=== PATIENT | female | born 1990 | race Caucasian/White ===

== ENCOUNTER 2021-05-02 00:45 | Outpatient (CLI) | payer SELFPAY ==
[2021-05-02 01:02] VITALS: BP 118/69; PULSE 92; TEMP 37.2; O2SAT 99
[2021-05-02 01:09] VITALS: BMI 26.9
[2021-05-02 02:59] VITALS: BP 118/70; PULSE 93
[2021-05-02 03:00] VITALS: PULSE 79; TEMP 36.5; O2SAT 100
[2021-05-02 03:13] VITALS: PULSE 79; O2SAT 98
--- NOTE | 2021-05-08 07:50 | OB.TRI.NOTE ---
HPI - General HPI Narrative MARTY WHITAKER, is a 31 F who presents for r/o labor @ 38.4 weeks gestation. Maternal Data Information TIMBO Calculator Estimated Delivery Date Method Current WG Current Estimate 05/12/21 Manual 39w 3d PFSH PFSH Home Medications vit,[id number] [Prenatabs FA] 1 tab PO DAILY 05/02/21 [History Last Taken 05/06/21 08:00] ferrous sulfate [iron] 325 mg PO DAILY 05/06/21 [History Last Taken 05/06/21 08:00] Allergy/AdvReac Type Severity Reaction Status Date / Time No Known Allergies Allergy Verified 05/06/21 18:45 Surgical History (Updated 05/06/21 @ 19:59 by Jenny Berg) History of surgery Social History Smoking Status: Never smoker History Elective abortions Hx Para 4 Spontaneous abortions Hx # Term Pregnancies Ectopic pregnancies Hx # Pregnancies Multiple births # of living children NST FHR Rate Baby A Baseline: 120 Variability:: Moderate Accelerations:: 15 x 15 Decelerations:: None NST Reactive:: Yes FHR Category:: Category I Uterine Activity:: irregular Assessment & Plan (1) False labor: PLAN: @ 38.4 weeks- false labor cervical exam unchanged- dc home
== END 2021-05-02 03:47 | disposition home or self-care (01) ==
LOC: WPOUT 01:01 → WP 01:01
PROVIDERS: Visit Provider Obstetrics & Gynecology
DX: O47.1 False labor at or after 37 completed weeks of gestation (principal); Z3A.38 38 weeks gestation of pregnancy
CPT/HCPCS: 59025; 59050; 99218; G0378

== ENCOUNTER 2021-05-06 18:05 | Inpatient (IN) | payer SELFPAY ==
[2021-05-06] VITALS (14 sets, daily range): BP systolic 107–122; BP diastolic 57–75; PULSE 70–105; TEMP 36.3–36.7; O2SAT 95–99; BMI 26.2
[2021-05-06] MEDS: Lactated Ringers 1,000 ML 200 ML IV (18:30)
--- NOTE | 2021-05-06 18:36 | HP.PCM.OB_ITS ---
HPI - General General Date of Admission: 05/06/21 HPI Narrative MARTY WHITAKER, is a 31 F who presents at 39w1d by LMP. Presented with contractions that started at 1600 this evening and increased in pain and intensity. No leakage of fluid or vaginal bleeding. Good movement. P regnancy course complicated by covid in 3rd trimester. Maternal Data Information TIMBO Calculator Estimated Delivery Date Method Current WG Current Estimate 05/12/21 Manual 39w 1d PFSH PFSH Home Medications vit,[id number] [Prenatabs FA] 1 tab PO DAILY 05/02/21 [History Last Taken 05/01/21] ferrous sulfate [iron] 325 mg PO DAILY 05/06/21 [History Last Taken 05/06/21 08:00] Allergy/AdvReac Type Severity Reaction Status Date / Time No Known Allergies Allergy Verified 05/06/21 18:45 NST FHR Rate Baby A Baseline: 140 Variability:: Moderate Accelerations:: 15 x 15 Decelerations:: None FHR Category:: Category I Uterine Activity:: 2-3 minutes, moderate to strong ROS Constitutional Constitutional: Reports systems reviewed and no addt'l complaints, except as documented; Denies headache(s) Eyes Eyes: Denies acute decrease in peripheral vision, blurry vision or change in vision ENT HEENT: Reports systems reviewed and no addt'l complaints, except as documented Cardiovascular Cardiovascular: Denies chest pain or dizziness Respiratory/Chest Respiratory/Chest: Denies cough, dyspnea, dyspnea on exertion, shortness of breath at rest or shortness of breath with exertion Gastrointestinal Gastrointestinal: Denies abdominal pain, diarrhea, nausea or vomiting Genitourinary Genitourinary: Reports movement; Denies abdominal discomfort Musculoskeletal Musculoskeletal: Denies limited range of motion Integumentary Integumentary: Reports systems reviewed and no addt'l complaints, except as documented Neurologic Neurologic: Reports systems reviewed and no addt'l complaints, except as documented Psychiatric Psychiatric: Reports systems reviewed and no addt'l complaints, except as documented Endocrine Endocrinology: Reports systems reviewed and no addt'l complaints, except as documented Hematologic/Lymphatic Hematologic/Lymphatic: Reports systems reviewed and no addt'l complaints, except as documented Allergic/Immunologic Allergic/Immunologic: Reports systems reviewed and no addt'l complaints, except as documented Physical Exam Const alert and oriented x3 General Appearance: cooperative Orientation / Consciousness: awake, oriented to person, oriented to place and oriented to time Exam Limitations: no limitations HEENT normocephalic Head and Scalp: normal to inspection, normocephalic and atraumatic Face and Sinus: normal facial exam Eyes General Eye: normal appearance of both eyes Neck full ROM Chest Chest: symmetrical chest wall rise Resp normal respiratory effort and normal air movement Auscultation: clear to auscultation bilaterally Cardio regular rate, regular rhythm, S1 normal heart sound, S2 normal heart sound, no m urmurs, no rub, no gallops and no clicks GI normal to inspection, nondistended, normoactive bowel sounds and non-tender appearance of the vagina normal Bladder / Kidney Exam: no CVA tenderness Manual OB Exam: estimated gestational size appropriate, presentation cephalic, dilated 5.5, effaced 70 and station -1 Back/Spine normal ROM Extremity normal to inspection and full ROM Skin no rashes or lesions noted Neuro oriented x3, CN's II-XII intact bilaterally and moves all extremities Sensorium / Orientation: awake, alert and oriented to person Motor Exam: clonus absent Deep Tendon Reflexes: Rt Patellar (L4): 2+ and Lt Patellar (L4): 2+ Labs Labs Labs: No Data to Display GBS positive Failed 1hr GCT, 3hr GTT normal RPR negative Rubella Immune HBsAG negative O positive HepC negative GC/CT negative Assessment & Plan (1) Active labor at term: (2) 39 weeks gestation of : (3) Positive GBS test: (4) Thrombocytopenia affecting : (5) COVID-19 affecting in third trimester: PLAN: 1) Admit to labor and delivery 2) Routine labs 3) COVID testing, asymptomatic 4) GBS positive, PCN per protocol 5) IA after category 1 FHT 6) Would like unmedicated 7) collaborative physician and notified of patient status and admission
[2021-05-06 19:01] LABS: Absolute Lymphocyte Count 2.03 X10^3/uL (0.83-4.51); Absolute Neutrophil Count 7.7 X10^3/uL (2.0-7.7); Basophil# 0.02 X10^3/uL; Basophil% 0.2 % (0-1); Eosinophil# 0.05 X10^3/uL; Eosinophils% 0.5 % (0-5); Lymphocyte # 2.03 X10^3/ul (0.83-4.51); Lymphocyte % 18.9 % (19-41); Mean Corp Hgb Conc 35.3 g/dL (32-36); Mean Corpuscular Hgb 31.9 pg (27.0-32.0); Mean Corpuscular Volume 90.4 fL (81-99); Mean Platelet Vol. 9.7 fl (6.2-12.0); Monocyte# 0.83 X10^3/uL; Monocyte% 7.7 % (0-10); NRBC Flagged by Analyzer 0 % (0-5); Neutrophil % 71.8 % (47-70); Platelet Count 173 K/mm3 (150-450); RBC Distribution Width CV 13.2 % (11.6-14.6); RBC Distribution Width SD 43.1 fl (35.1-43.9); Red Blood Count 3.76 M/mm3 (4.2-5.4); White Blood Count 10.7 K/mm3 (4.4-11.0)
[2021-05-06] MEDS: Penicillin G 3,000,000 Units 50 ML 100 UNITS IV (22:48)
--- NOTE | 2021-05-06 22:51 | PN.OBGYN_ITS ---
Subjective Subjective Laboring on peanut ball and breathing through contractions. at bedside. Objective Data Objective Data Vital Signs: Vital Signs Temp Pulse BP Pulse Ox 97.6 F L 70 107/57 L 95 05/06/21 21:55 05/06/21 22:30 05/06/21 21:55 05/06/21 21:55 Weight: 167 lb Body Mass Index (BMI) 26.2 Intake & Output: Intake and Output for Last 24 Hours 05/04/21 05/05/21 05/06/21 23:59 23:59 23:59 Intake Total 825 / 825 Balance 825 / 825 Lab / Micro Data Result Diagrams: 05/06/21 18:30 Labs: Laboratory Results - last 24 hr 05/06/21 18:30: WBC 10.7, RBC 3.76 L, Hgb 12.0, Hct 34.0 L, MCV 90.4, MCH 31.9, MCHC 35.3, RDW Std Deviation 43.1, RDW Coeff of Denae 13.2, Plt Count 173, MPV 9.7, Immature Gran % (Auto) 0.900, Neut % (Auto) 71.8 H, Lymph % (Auto) 18.9 L, [place] % (Auto) 7.7, Eos % (Auto) 0.5, Baso % (Auto) 0.2, Absolute Neuts (auto) 7.7, Absolute Lymphs (auto) 2.03, Nucleated RBC % 0 05/06/21 18:30: Blood Type O POSITIVE, Antibody Screen NEGATIVE Micro: Microbiology 05/06/21 18:48 Nasal Secretion SARS-CoV-2 Antigen (Rapid) - Final Physical Exam Manual OB Exam: presentation cephalic, dilated 6.5, effaced 80 and station -1 Amniotic Fluid: clear amniotic fluid NST FHR Rate Baby A Baseline: Intermittent Auscultation 130, increases, no decreases FHR Category:: Category I Uterine Activity:: every 2-5 minutes, strong Assessment & Plan (1) COVID-19 affecting in third trimester: (2) Thrombocytopenia affecting : (3) Positive GBS test: (4) 39 weeks gestation of : (5) Active labor at term: PLAN: 1) IA, Category 1 2) Expectant management. AROM 3) GBS, continue prophylaxis PCN 4) Pain management, planning unmedicated
[2021-05-07] VITALS (38 sets, daily range): BP systolic 109–131; BP diastolic 57–70; PULSE 60–100; RESP 16; TEMP 36.2–37; O2SAT 91–100
[2021-05-07] MEDS: Oxytocin 30 units/NS 500 ml 30 UNITS/500 ML IV.SOLN 334 UNITS IV (00:38)
--- NOTE | 2021-05-07 00:51 | EX.PCM.OBRPT ---
Assessment & Plan (1) Vaginal delivery: (2) First degree perineal laceration: Maternal Data Information TIMBO Calculator Estimated Delivery Date Method Current WG Current Estimate 05/12/21 Manual 39w 2d Vaginal Delivery Maternal Presentation Maternal Presentation: Active Labor Operative Information Date of Procedure: 05/07/21 Pre-Operative Diagnosis: Active Labor Post-Operative Diagnosis: Surgery / Procedure Performed: Spontaneous Vaginal Delivery Type of Anesthesia: None Estimated Blood Loss: 200 ml Time of Delivery: 00:35 Findings Description of Procedure: Progressed to complete with urge to push. Unmedicated . of viable male infant over first degree perineal laceration. APGARS 9,9. Infant head delivered with compound hand presentation, body immediately forthcoming and placed on maternal abdomen. Mouth and nares wiped for secretions, strong cry. Pitocin started for active 3rd stage management. Cord clamped and cut after pulsations ceased. Placenta delivered intact via kike. Perineum inspected and revealed first degree perineal laceration, repaired with 3.0 vicryl rapide with no anesthesia with patient consent, single figure of 8 suture. Vaginal sweep completed, fundus firm, EBL 200ml. Sponge and instrument count correct and completed by me. Mom and baby stable, family bonding well. Planning to breastfeed. collaborative physician and notified of patient delivery. Presentation: ROSALINA Amniotic Membrane Rupture Type: Artificial Amniotic Fluid Description: Clear Placental Delivery Description: Expressed Placenta Disposition: [facility] Cord Vessel Description: 3 Vessels Cord Entanglement: None Infant A Gender: Male (1 minute): 9 (5 minute): 9 Delayed Cord Clamping: Yes Post Vaginal Delivery Medications Given After Delivery: IV Pitocin Episiotomy Description: None Laceration: Perineal Extension/lac and 1st degree Complication Complications: None
[2021-05-07] MEDS: 0.9% Saline Lock 10 ML Syringe IV (03:08)
[2021-05-07] MEDS: Ibuprofen 600 MG Tablet PO (03:08)
[2021-05-07] MEDS: Senna/Docusate Sodium 1 Tablet PO (16:36)
[2021-05-07] MEDS: Acetaminophen 500 MG Tablet 1000 MG PO (20:10)
[2021-05-08] MEDS: Ibuprofen 600 MG Tablet PO (00:43)
[2021-05-08] MEDS: Hydrocortisone 2.5% Crm 1 APPLIC TOPICAL (00:44)
[2021-05-08 01:30] VITALS: BP 108/59; PULSE 64; RESP 16; TEMP 36.4; O2SAT 97
[2021-05-08 01:43] VITALS: O2SAT 97
[2021-05-08 01:44] VITALS: BP 108/59; PULSE 63
[2021-05-08 08:02] VITALS: BP 112/56; PULSE 69
[2021-05-08 08:03] VITALS: BP 112/66; PULSE 70; RESP 16; TEMP 36.6; O2SAT 99
--- NOTE | 2021-05-08 08:52 | PCM.PROGNOTE ---
Subjective Subjective patient seen at bedside, doing well. Patient reports good pain control. lochia mild. Objective Data Objective Data Vital Signs: Vital Signs Temp Pulse Resp BP Pulse Ox 97.9 F 70 16 112/66 99 05/08/21 08:03 05/08/21 08:03 05/08/21 08:03 05/08/21 08:03 05/08/21 08:03 Oxygen Delivery Method Room Air Weight: 75.75 kg Body Mass Index (BMI) 26.2 Intake & Output: Intake and Output for Last 24 Hours 05/06/21 05/07/21 05/08/21 23:59 23:59 23:59 Intake Total 1675 / 1675 900 / 900 Output Total 300 / 300 Balance 1675 / 1675 600 / 600 Lab / Micro Data Result Diagrams: 05/06/21 18:30 Micro: Microbiology 05/06/21 18:48 Nasal Secretion SARS-CoV-2 Antigen (Rapid) - Final Physical Exam Const alert and oriented x3 General Appearance: cooperative HEENT normocephalic Neck General: normal visual inspection GI soft to palpation and non-distended GI Narrative: Fundus firm Extremity normal to inspection and no calf tenderness Skin no rashes or lesions noted Neuro oriented x3 and CN's II-XII intact bilaterally Psych mental status grossly normal Assessment & Plan Assessment/Plan (1) Vaginal delivery: (2) First degree perineal laceration: PLAN: PPD#1 , Doing well Routine care pain mgmt ambulation dc home per patient request
--- NOTE | 2021-05-08 08:52 | PCM.DC ---
Discharge Instructions Diet Discharge Diet: No restrictions Activity May resume sexual activity in: 6-8 weeks Dressing / Incision Call your doctor if you observe: Fever of 101 or Higher, Inability to urinate, Using more than 1 pad per hour and Uncontrolled pain Follow Up Care Please Follow Up With: Vannessa Patton MD When: 1-2 weeks post and again at 6 weeks post . [phone] Test Results: Test results from this visit will be discussed in further detail at your follow-up appointment, if applicable. Discharge Plan Admission Admit Date/Time: 05/06/21 18:05 Attending Provider: Karen Ruiz Primary Care Provider: Care Physician,No Primary Discharge Orders/Prescriptions Prescriptions: New acetaminophen 500 mg Tablet 1,000 mg PO Q6H PRN PRN (Reason: Pain 1-10 Or Fever) Qty: 0 RF: 0 ibuprofen 600 mg Tablet 600 mg PO Q6H PRN PRN (Reason: Pain Score 1-3) Qty: 0 RF: 0 Continued Prenatabs FA 29-1 mg Tablet 1 tab PO DAILY RF: 0 ferrous sulfate [iron] 325 mg (65 mg iron) Tablet 325 mg PO DAILY RF: 0 Referrals / Follow Up: Care Physician,No Primary [Primary Care Provider] - Disposition Disposition (needs filled in before D/C Order can be placed): Home, Self Care
== END 2021-05-08 10:28 | disposition home or self-care (01) | DRG 807 ==
PROVIDERS: Admitting Provider Advanced Practice Midwife; Visit Provider Advanced Practice Midwife
DX: O99.119 Other diseases of the blood and blood-forming organs and certain disorders involving the immune mechanism complicating pregnancy, unspecified trimester (principal); Z37.0 Single live birth; D69.6 Thrombocytopenia, unspecified; O99.824 Streptococcus B carrier state complicating childbirth; O70.0 First degree perineal laceration during delivery; Z3A.39 39 weeks gestation of pregnancy; Z86.16 Personal history of COVID-19
CPT/HCPCS: 59025; 59050; 85025; 86850; 86900; 86901; 87426; 99218; J7120; A4216; G0378

== ENCOUNTER 2023-09-30 17:30 | Inpatient (IN) | payer MEDICAID, SELFPAY ==
[2023-09-30] VITALS (10 sets, daily range): BP systolic 115–126; BP diastolic 56–71; PULSE 73–90; RESP 14–18; TEMP 36.4–37.4; O2SAT 98–100; BMI 26.4
[2023-09-30] MEDS: Lactated Ringers 1,000 ML 50 ML IV (17:50)
[2023-09-30 18:02] LABS: Absolute Lymphocyte Count 1.92 X10^3/uL (0.83-4.51); Absolute Neutrophil Count 6.3 X10^3/uL (2.0-7.7); Basophil# 0.02 X10^3/uL; Basophil% 0.2 % (0-1); Eosinophil# 0.05 X10^3/uL; Eosinophils% 0.5 % (0-5); Hematocrit 31.7 % (37-47); Hemoglobin 10.4 g/dL (12.0-15.0); Lymphocyte # 1.92 X10^3/ul (0.83-4.51); Lymphocyte % 20.9 % (19-41); Mean Corp Hgb Conc 32.8 g/dL (32-36); Mean Corpuscular Hgb 28.6 pg (27.0-32.0); Mean Corpuscular Volume 87.1 fL (81-99); Mean Platelet Vol. 9.8 fl (6.2-12.0); Monocyte# 0.81 X10^3/uL; Monocyte% 8.8 % (0-10); NRBC Flagged by Analyzer 0 % (0-5); Neutrophil # 6.34 X10^3/uL (2.7-7.7); Neutrophil % 68.9 % (47-70); Platelet Count 189 K/mm3 (150-450); RBC Distribution Width CV 13.8 % (11.6-14.6); RBC Distribution Width SD 43.8 fl (35.1-43.9); Red Blood Count 3.64 M/mm3 (4.2-5.4); White Blood Count 9.2 K/mm3 (4.4-11.0)
[2023-09-30] MEDS: Penicillin G Pot 5,000,000 UNITS in 0.9% Normal Saline (100mL MB+) 100 ML 150 UNITS IV (18:07)
[2023-09-30 18:50] LABS: Syphilis Antibodies Non-reactive
[2023-09-30] MEDS: LACTATED RINGERS 500 ML 999 ML IV (19:20)
[2023-09-30] MEDS: Penicillin G 3,000,000 Units 50 ML 100 UNITS IV (22:10)
[2023-10-01] VITALS (38 sets, daily range): BP systolic 108–124; BP diastolic 54–69; PULSE 55–75; RESP 14–18; TEMP 36.8–37.7; O2SAT 98–100
[2023-10-01] MEDS: Oxytocin 15 Units/NS 250ml 15 UNITS/250 ML IV.SOLN 334 UNITS IV (00:37)
--- NOTE | 2023-10-01 00:54 | EX.PCM.OBRPT ---
Assessment & Plan (1) (spontaneous vaginal delivery): (2) 39 weeks gestation of : Maternal Data Information Final TIMBO: 10/07/23 Gestational age: 39+1 Vaginal Delivery Maternal Presentation Maternal Presentation: Active Labor Maternal Presentation: 6 cm paras Type of Induction: Amniotomy Operative Information Date of Procedure: 10/01/23 Pre-Operative Diagnosis: Labor at term Post-Operative Diagnosis: same Surgery / Procedure Performed: Spontaneous Vaginal Delivery Type of Anesthesia: None Estimated Blood Loss: 100 cc Time of Delivery: 00:34 Findings Description of Procedure: Progressed to complete after AROM. Pushed for 30 minutes and delivered JAYANT followed by the anterior and posterior shoulders without difficulty. The infant was placed on the maternal abdomen. After one minute the cord was clamped and cut. The placenta was delivered with gentle traction. There were no lacerations. Presentation: Vertex Amniotic Membrane Rupture Type: Artificial Time of Membrane Rupture: 1010 Amniotic Fluid Description: Clear Placental Delivery Description: Spontaneous Placenta Disposition: [facility] Cord Vessel Description: 3 Vessels Cord Entanglement: None Infant A Gender: Female (1 minute): 9 (5 minute): 9 Delayed Cord Clamping: Yes Post Vaginal Delivery Medications Given After Delivery: IV Pitocin Episiotomy Description: None Laceration: None Complication Complications: None
[2023-10-01] MEDS: Oxytocin 15 Units/NS 250ml 15 UNITS/250 ML IV.SOLN 83 UNITS IV (01:07)
[2023-10-02 01:30] VITALS: BP 110/57; PULSE 62
[2023-10-02 01:32] VITALS: BP 110/57; PULSE 62; RESP 18
--- NOTE | 2023-10-02 07:07 | PCM.DC.SUM ---
Providers Date of Admission: 09/30/23 Primary Care Physician: Jessi Primary Care Phys Reason For Visit: VAGINAL DELIVERY Diagnosis Discharge Diagnosis (1) (spontaneous vaginal delivery): Status: Acute Code(s): O80 - Encounter for full-term uncomplicated delivery (2) 39 weeks gestation of : Status: Resolved Code(s): Z3A.39 - 39 weeks gestation of Medications at Discharge Home Medications vits,calcium no.78-iron fumarate-folic acid 29 mg-1 mg tablet (Prenatabs FA) 1 tab PO DAILY 05/02/21 ferrous sulfate 325 mg (65 mg iron) tablet (iron) 325 mg PO .COMPLEX low iron 05/06/21 Hospital Course Operations None Procedures None Summary of Care Provided Minutes Spent on Discharge: 15 Hospital Course: Patient had vaginal delivery. Hospital course was uneventful. Physical Exam Narrative Patient seen at bedside. Denies pain. Ambulating and voiding without difficulty. Lochia decreased. Desires discharge home today. Const alert and oriented x3 General Appearance: Negative for in distress HEENT normocephalic Eyes General Eye: normal appearance of both eyes Neck General: normal visual inspection Chest Chest: symmetrical chest wall rise Resp normal respiratory effort and normal air movement Effort and Inspection: symmetric chest movement; Negative for tachypneic Auscultation: clear to auscultation bilaterally Cardio regular rate and regular rhythm Peripheral Pulses: pulses 2+ throughout GI normal to inspection, nondistended, normoactive bowel sounds Narrative: Ice to perineum OB / External & Speculum: vaginal bleeding and other Lochia decreasing Uterus Palpation: uterus fundus firm (Below U) Extremity normal to inspection, full ROM and normal capillary refill Skin no rashes or lesions noted Neuro oriented x3, CN's II-XII intact bilaterally and gait normal Psych mental status grossly normal, thought process normal and activity/motor behavior normal Weight / BMI Weight Weight: 168 lb 6 oz Body Mass Index (BMI) 26.4 ABG / Lab / Microbiology Data 09/30/23 17:50 D/C Instructions Discharge Diet: No restrictions Discharge Activity: Return to Normal Activity, No Restrictions, May Drive, May Shower and May Take a Tub Bath (Warm water only. No bath salts, soaps, bubbles) May resume sexual activity in: 6-8 weeks Weight Bearing Status: Weight bearing as tolerated Call your doctor if you observe: Fever of 101 or Higher, Inability to urinate, Using more than 1 pad per hour, Shortness of breath, Dizziness, Chest pain, Calf discomfort and Uncontrolled pain Please Follow Up With: [facility] Jinny BECERRA When: 2 weeks in office or virtual Meaningful Use Info Meaningful Use Meaningful Use Diagnoses (Choose all that apply): None applicable Ischemic Stroke Statin Dosing Therapy Reference: STATIN DOSE THERAPY REFERENCE: * Patients > 75 years receive moderate or high dose statin therapy. * Patients 75 years or YOUNGER should receive HIGH intensity statin dose unless contraindicated. You will be required to document reason for non-treatment if statin daily dose does not meet guidelines. HIGH DOSE STATIN THERAPY DAILY Atorvastatin > than or = to 40 mg Rosuvastatin > than or = to 20 mg Amlodipine + Atorvastatin > than or = to 2.5/40 mg Ezetimibe + Simvastatin 10/80 mg Simvastatin 80mg Discharge Plan Admission Admit Date/Time: 09/30/23 17:30 Primary Reason for Your Visit: Labor and Delivery Attending Provider: Celine Porras Primary Care Provider: Care Physician,No Primary Discharge Orders/Prescriptions Prescriptions: Continued Prenatabs FA 29-1 mg Tablet 1 tab PO DAILY ferrous sulfate [iron] 325 mg (65 mg iron) Tablet 325 mg PO .COMPLEX Rx Instructions: 325 mg orally Every other day; Referrals / Follow Up: Kirsten Daniels CNM [Med Staff - Adv Practice Prof] - Care Physician,No Primary [Primary Care Provider] - Disposition Disposition (needs filled in before D/C Order can be placed): Home, Self Care
[2023-10-02 08:29] VITALS: BP 113/70; PULSE 62; RESP 16; TEMP 37.2; O2SAT 97
[2023-10-02 08:30] VITALS: BP 113/70; PULSE 64
--- NOTE | 2023-10-12 07:53 | OB.TRI.HP_ITS ---
HPI - General General Date of Admission: 09/30/23 Date of Service: 09/30/23 Chief Complaint: labor HPI Narrative MARTY WHITAKER, is a 33 F who admitted from office at 6 cm. Multiple contractions q 3 minutes. GBS positive Maternal Data Information Final TIMBO: 10/07/23 Gestational age: 39 [facility] Medical History Anemia Home Medications ?Medication ?Instructions ?Recorded ?Last Taken ?Type vits,calcium no.78-iron 1 tab PO DAILY 05/02/21 09/29/23 08:00 History fumarate-folic acid 29 mg-1 mg 1 TAB tablet (Prenatabs FA) ferrous sulfate 325 mg (65 mg 325 mg PO .COMPLEX low iron 05/06/21 09/29/23 20:00 History iron) tablet (iron) 325 mg Allergy/AdvReac Type Severity Reaction Status Date / Time No Known Allergies Allergy Verified 09/30/23 17:44 Surgical History History of surgery Social History Smoking Status: Never smoker History Elective abortions Hx Para 5 Spontaneous abortions Hx # Term Pregnancies Ectopic pregnancies Hx # Pregnancies Multiple births # of living children ROS Constitutional Constitutional: Denies fatigue, fever(s) or malaise Eyes Eyes: Denies change in vision ENT HEENT: Denies dizziness or headache(s) Cardiovascular Cardiovascular: Denies chest pain, dyspnea or lightheadedness Respiratory/Chest Respiratory/Chest: Denies cough or dyspnea Gastrointestinal Gastrointestinal: Denies change in bowel habits Genitourinary Genitourinary: Denies burning urination or genital lesions Integumentary Integumentary: Denies rash Neurologic Neurologic: Denies confusion, dizziness, headache(s), numbness or weakness Physical Exam Const alert and no apparent distress General Appearance: cooperative HEENT normocephalic Resp normal respiratory effort Cardio regular rate GI soft to palpation GI Narrative: gravid, nontender, appropriate for gestational age Extremity no calf tenderness General Extremity: edema Skin no wounds Rashes: No rashes noted Psych activity/motor behavior normal NST FHR Rate Baby A NST Reactive:: Yes FHR Category:: Category I Uterine Activity:: q 3 Assessment & Plan (1) Normal labor: (2) 39 weeks gestation of : PLAN: Plan Active labor GBS positive- PCN no epidural
== END 2023-10-02 10:10 | disposition home or self-care (01) | DRG 560 ==
LOC: WPOUT 17:35 → WP 17:35
PROVIDERS: Admitting Provider Obstetrics & Gynecology; Referring Provider Obstetrics & Gynecology; Visit Provider Obstetrics & Gynecology
DX: O99.820 Streptococcus B carrier state complicating pregnancy (principal); Z37.0 Single live birth; Z3A.39 39 weeks gestation of pregnancy
CPT/HCPCS: 59025; 59050; 85025; 86780; 86850; 86900; 86901; 99221; J7120; G0378